=== PATIENT | female | born 1980 | race Caucasian/White ===

== ENCOUNTER 2018-09-22 21:29 | Inpatient (IN) | payer BC ==
--- OUTSIDE RECORDS SUMMARY | 2018-09-22 21:32 | XMS REPORT ---
:1980 [facility] Address [address] [place] [address] Care Team Providers Name Role Phone Unavailable Unavailable Unavailable Problems This patient has no known problems. Allergies, Adverse Reactions, Alerts This patient has no known allergies or adverse reactions. Medications This patient has no known medications. Results Test Description Test Time Test Comments Text Results Atomic Results Result Comments FL, UGI, AIR 2017-07-03 14:51:00 Reason for FINAL REPORT PATIENT ID: CONTRAST, WITHOUT Exam:->MORBID OBESITY, [id number] Upper GI KUB COMPLICATION GASTRIC dated 07/03/2017 History: BAND Morbid obesity, evaluate lap band Comparison: CT of the abdomen and pelvis dated 08/05/2016 Findings: Patient swallowed liquid barium under fluoroscopy. Total patient fluoro is 0.6 minutes. Total number of images is 16. There is a gastric lap band in place. The angle between the spine and the lap band is approximately 46 degrees. Contrast flowed smoothly from the distal esophagus, through the gastric lap band, into the stomach. The esophagus was normal in caliber, and motility. Previously seen hernia on CT scan of the abdomen and pelvis was not visualized on today's examination. No gastroesophageal reflux noted during the examination. Visualized mucosa of the stomach and duodenum was normal. There was prompt passage of contrast from stomach into the proximal small bowel. Impression: Gastric lap band in place with no evidence of obstruction. Signed: Leslie Saunders MDReport Verified Date/Time: 07/03/2017 14:51:01 Reading Location: [facility] Radiology Reading Room
--- OUTSIDE RECORDS SUMMARY | 2018-09-22 21:32 | XMS REPORT | Clinical Summary ---
:1980 Author Organization [facility] Address [address] [place] [address] Care Team Providers Name Role Phone Delmer Torres MD Primary Care Provider Allergies Active Allergy Reactions Severity Noted Date Comments Codeine 07/11/2013 Morphine 07/11/2013 Hydrocodone-Acetaminophen 07/11/2013 Medications Medication Sig Dispensed Refills Start Date End Date Status levothyroxine 2 05/10/2018 Active (SYNTHROID, LEVOTHROID) 50 MCG tablet MINIVELLE 0.1 mg/24 Place 1 patch 8 patch 11 05/17/2018 Active hr patch onto the skin 9 twice a week. PREMARIN 0.625 INSERT ONE GRAM 30 g 3 06/21/2018 Active mg/gram vaginal VAGINALLY TWICE cream WEEKLY FOR 30 DAYS estradiol (ESTRACE) Take 2 mg by 0 Discontinued 2 MG tablet mouth daily. 8 ergocalciferol Take 50,000 0 Discontinued (VITAMIN D2) 50,000 Units by mouth 8 unit capsule once a week. MINIVELLE 0.1 mg/24 APPLY ONE PATCH 0 04/18/2018 Discontinued hr patch TO SKIN TWICE A [address] 1 g 8 g 0 05/17/2018 Discontinued (PREMARIN) 0.625 vaginally twice 8 mg/gram vaginal a week for 30 cream days. Active Problems Not on file Encounters Date Type Specialty Care Team Description 06/18/2018 Refill Obstetrics and [facility] Gynecology 05/17/2018 Office Visit Obstetrics and Eddie [facility]cock Well woman exam with Gynecology MD routine gynecological exam (Primary Dx) after 09/21/2017 Family History Medical History Relation Name Comments Pancreatic cancer Cousin Paternal Atrial fibrillation Father Depression Father Heart disease Father Hypertension Father Liver disease Father Heart disease Maternal Grandfather Colon cancer Maternal Grandmother Heart disease Maternal Grandmother Liver cancer Maternal Grandmother Heart disease Mother Hypertension Mother Brain cancer Paternal Aunt Lung cancer Paternal Aunt Colon cancer Paternal Grandfather Heart disease Paternal Grandfather Heart disease Paternal Grandmother Stroke Paternal Grandmother Relation Name Status Comments Cousin Paternal Alive Father Maternal Grandfather Maternal Grandmother Mother Paternal Aunt Paternal Grandfather Paternal Grandmother Social History Tobacco Use Types Packs/Day Years Used Date Never Smoker Smokeless Tobacco: Never Used Alcohol Use Drinks/Week oz/Week Comments Yes 1 Glasses of wine 0.6 Sex Assigned at Date Recorded Not on file Job Start Date Occupation Industry Not on file Not on file Not on file Travel History Travel Start Travel End No recent travel history available. Last Filed Vital Signs Vital Sign Reading Time Taken Blood Pressure 124/80 05/17/2018 11:28 AM CDT Pulse - - Temperature - - Respiratory Rate - - Oxygen Saturation - - Inhaled Oxygen Concentration - - Weight 92.5 kg (204 lb) 05/17/2018 11:28 AM CDT Height 160 cm (5' 3") 05/17/2018 11:28 AM CDT Body Mass Index 36.14 05/17/2018 11:28 AM CDT Plan of Treatment Health Maintenance Due Date Last Done Comments INFLUENZA VACCINE 06/28/2018 Procedures Procedure Name Priority Date/Time Associated Diagnosis Comments PAP IG, RFX HPV AP Routine 05/17/2018 11:27 Well woman exam with Results for this ASCU AM CDT routine gynecological procedure are in exam the results section. after 09/21/2017 Results PAP IG, RFX HPV ASCU (05/17/2018 11:27 AM CDT) Clinical Information None given QUESTRGA LMP NONE GIVEN QUESTRGA Previous Pap NONE GIVEN QUESTRGA Previous Biopsy NONE GIVEN QUESTRGA Source: Vagina QUESTRGA Adequacy: QUESTRGA Comment: Satisfactory for evaluation. Endocervical/transformation zone component absent. Age and/or menstrual status not provided Interp/Result Comment: Negative for intraepithelial QUESTRGA lesion or malignancy. Infection: QUESTRGA Comment: Fungal organisms morphologically consistent with Priya spp. Comment: QUESTRGA Comment: This Pap test has been evaluated with computer assisted technology. [employer] CHARLIE Comment: JGM, CT(ASCP) CT screening location: [address], [place] [id number] Comment CHARLIE Comment: EXPLANATORY NOTE: The Pap is a screening test for cervical cancer. It is not a diagnostic test and is subject to false negative and false positive results. It is most reliable when a satisfactory sample, regularly obtained, is submitted with relevant clinical findings and history, and when the Pap result is evaluated along with historic and current clinical information. Specimen Vaginal Swab - Vaginal Resulting Agency Comment Performing Organization Information: Site ID: [id number] Name: [facility] Address: [address] [place] [id number] Director: Ayse Barber Performing Organization Address [facility]/State[facility] Phone Number [facility] [address] [place] [address] CHARLIE after 09/21/2017 Insurance Payer Benefit Plan / Subscriber ID Type Phone Address Group BLUE CROSS/BLUE BCBS ADV HMO xxxxxxxxxxxx [phone] [id number] [place] [address]
[2018-09-22] MEDS ORDERED: HYDROMORPHONE HCL 1 MG/ML INJ ONE (22:02)
[2018-09-22] MEDS ORDERED: ONDANSETRON 4 MG/2 ML VIAL ONE (22:02)
[2018-09-22 22:35] LABS: Absolute Lymphocytes (CBC) 2.7 K/uL (0.7-4.9); Absolute Monocytes 0.8 K/uL (0.1-1.3); Absolute Neutrophil 9.5 K/uL (1.8-8.0); Basophils % 0.6 % (0-1.3); Eosinophils % 1.6 % (0-4.4); Hematocrit 39.7 % (36.0-45.0); Lymphocytes % 20.1 % (15.3-44.8); MPV 6.6 fL (7.6-11.3); Monocytes % 5.9 % (3.3-12.3); RBC Red Blood Cell Count 4.58 M/uL (3.86-4.86)
--- NOTE | 2018-09-22 22:40 | ER ---
Nurse's Notes [facility] Name: Mamadou Weber Age: 38 yrs Sex: Female : 1980 Arrival Date: 09/22/2018 Time: 21:31 Bed 5 Private MD: Diagnosis: Bimalleolar fracture of lower leg-intractable pain Presentation: 09/22 21:32 Presenting complaint: EMS states: Patient reports she was at [employer] and lost her ea footing and fell into a ball pit, pt reports pain to right foot, EMS reports pedal pulses to affected area, deformity noted to right ankle. Transition of care: patient was not received from another setting of care. Onset of symptoms was September 22, 2018. Risk Assessment: Do you want to hurt yourself or someone else? Patient reports no desire to harm self or others. Initial Sepsis Screen: Does the patient meet any 2 criteria? No. Patient's initial sepsis screen is negative. Does the patient have a suspected source of infection? No. Patient's initial sepsis screen is negative. Care prior to arrival: None. 21:32 Method Of Arrival: EMS: [facility] ea 21:32 Acuity: RACHID 3 ea Triage Assessment: 21:32 General: Appears uncomfortable, Behavior is restless. Pain: Complains of pain in right ea ankle. Neuro: Level of Consciousness is awake, alert, obeys commands. Cardiovascular: Pulses are absent in right dorsalis pedis artery. Respiratory: Airway is patent Respiratory effort is even, unlabored, Respiratory pattern is regular, symmetrical. Musculoskeletal: Bony deformity noted of right ankle. Historical: - Allergies: 22:19 Codeine; ea - PSHx: 22:19 Cholecystectomy; ea - Immunization history:: Adult Immunizations up to date. - Social history:: Smoking status: Patient/guardian denies using tobacco. - Family history:: not pertinent. - Ebola Screening: : No symptoms or risks identified at this time. Screenin:32 Abuse screen: Denies threats or abuse. Nutritional screening: No deficits noted. ea Tuberculosis screening: No symptoms or risk factors identified. Fall Risk Assessment: 22:41 Reassessment: Patient and/or family updated on plan of care and expected duration. Pain ea level reassessed. Patient is alert, oriented x 3, equal unlabored respirations, skin warm/dry/pink. Pt complaining of pain, provider notified medication order obtained,medication administered. 23:39 Reassessment: Patient and/or family updated on plan of care and expected duration. Pain ea level reassessed. Patient is alert, oriented x 3, equal unlabored respirations, skin warm/dry/pink. awaiting for CT results. 09/23 00:21 Reassessment: Patient and/or family updated on plan of care and expected duration. Pain ea level reassessed. Patient is alert, oriented x 3, equal unlabored respirations, skin warm/dry/pink. 01:00 Reassessment: Patient and/or family updated on plan of care and expected duration. Pain ea level reassessed. Patient is alert, oriented x 3, equal unlabored respirations, skin warm/dry/pink. 02:15 Reassessment: Patient and/or family updated on plan of care and expected duration. Pain ea level reassessed. Patient is alert, oriented x 3, equal unlabored respirations, skin warm/dry/pink. 03:17 Reassessment: Patient and/or family updated on plan of care and expected duration. Pain ea level reassessed. Patient is alert, oriented x 3, equal unlabored respirations, skin warm/dry/pink. Transferred via stretcher to second floor [facility], accompanied by family. Tolerating well. Vital Signs: 09/22 21:32 BP 132 / 105; Pulse 99; Resp 20; Temp 98.7; Pulse Ox 100% ; Pain 10/10; ea 22:00 BP 128 / 90; Pulse 80; Resp 19; Pulse Ox 99% ; ea 23:50 BP 128 / 84; Pulse 77; Resp 18; Pulse Ox 100% ; ea 09/23 00:45 BP 119 / 81; Pulse 82; Resp 18; Pulse Ox 100% on R/A; Pain 8/10; ea 03:00 BP 135 / 70; Pulse 78; Resp 18; Temp 98; Pulse Ox 98% ; Pain 8/10; ea ED Course: 09/22 21:31 Patient arrived in ED. am2 21:34 Hiro Schmitz MD is Attending Physician. [facility] 21:35 Patient has correct armband on for positive identification. Bed in low position. Call ea light in reach. Side rails up X2. 21:35 Arm band placed on right wrist. Patient placed in an exam room, on a stretcher, on ea pulse oximetry. 22:13 Viola Tamez, ERIK is Primary Nurse. ea 22:16 Triage completed. ea 22:22 Ankle Right 3 View XRAY In Process Unspecified. EDMS 22:38 Tahir Saucedo MD is Referral Physician. susan 22:58 Orthoglass splint: stirrup splint applied on right leg. oe 23:34 Ankle Right Wo Con In Process Unspecified. EDMS 09/23 00:33 Tahir Saucedo MD is Hospitalizing Provider. susan 01:02 No provider procedures requiring assistance completed. Patient admitted, IV remains in ea place. Administered Medications: 09/22 22:14 Drug: Dilaudid 1 mg Route: IVP; Site: left antecubital; ea 22:50 Follow up: Response: Pain is decreased ea 22:14 Drug: Zofran 4 mg Route: IVP; Site: left antecubital; ea 22:45 Follow up: Response: No adverse reaction ea 23:04 Drug: fentaNYL Patch (50 mcg/hr) 1 patches Route: Transdermal; Site: affected area; ea 09/23 00:14 Drug: Dilaudid 1 mg Route: IVP; Site: left antecubital; ea 01:00 Follow up: Response: No adverse reaction; Pain is decreased ea 00:14 Drug: Zofran 4 mg Route: IVP; Site: left antecubital; ea 01:00 Follow up: Response: No adverse reaction ea 03:15 Drug: TORadol 30 mg Route: IVP; Site: left antecubital; ea 03:16 Follow up: Response: No adverse reaction; No adverse reaction,medication administered ea upon tranfer 03:16 Not Given (administered, documented in meditech): Dilaudid 1 mg IVP once ea Outcome: 09/22 22:39 Discharge ordered by . [facility] 09/23 00:35 Decision to Hospitalize by Provider. susan 01:03 Condition: stable ea 01:03 Instructed on the need for admit. 03:19 Admitted to Med/surg accompanied by tech, via stretcher, with chart, Report called to maco Carlton RN 03:20 Patient left the ED. ea Signatures: Dispatcher [employer] EDID Hiro Schmitz MD MD cha Espinosa, Orlando oe Moreno, Amanda am2 Tamez, Viola, RN RN ea
--- NOTE | 2018-09-22 22:40 | EDPHYS ---
Physician Documentation [facility] Name: Mamadou Weber Age: 38 yrs Sex: Female : 1980 Arrival Date: 09/22/2018 Time: 21:31 Bed 5 Private MD: ED Physician Hiro Schmitz HPI: 09/22 21:38 This 38 yrs old Female presents to ER via Unassigned with complaints of Leg susan Pain. 21:38 The patient presents with decreased range of motion, pain, swelling, tenderness. The susan complaints affect the right ankle and anterior aspect of right ankle. Context: The problem was sustained. Onset: The symptoms/episode began/occurred just prior to arrival. Modifying factors: The symptoms are alleviated by elevating leg, remaining still, the symptoms are aggravated by movement. Associated signs and symptoms: The patient has no apparent associated signs or symptoms. Treatment prior to arrival includes: elevation of the extremity, icing the affected extremity. Severity of symptoms: At their worst the symptoms were moderate, in the emergency department the symptoms are unchanged. Historical: - Allergies: 22:19 Codeine; ea - PSHx: 22:19 Cholecystectomy; ea - Immunization history:: Adult Immunizations up to date. - Social history:: Smoking status: Patient/guardian denies using tobacco. - Family history:: not pertinent. - Ebola Screening: : No symptoms or risks identified at this time. ROS: 21:38 Constitutional: Negative for fever, chills, and weight loss, Eyes: Negative for injury, susan pain, redness, and discharge, ENT: Negative for injury, pain, and discharge, Neck: Negative for injury, pain, and swelling, Cardiovascular: Negative for chest pain, palpitations, and edema, Respiratory: Negative for shortness of breath, cough, wheezing, and pleuritic chest pain, Abdomen/GI: Negative for abdominal pain, nausea, vomiting, diarrhea, and constipation, Back: Negative for injury and pain, : Negative for injury, bleeding, discharge, and swelling, Skin: Negative for injury, rash, and discoloration, Neuro: Negative for headache, weakness, numbness, tingling, and seizure, Psych: Negative for depression, anxiety, suicide ideation, homicidal ideation, and hallucinations, Allergy/Immunology: Negative for hives, rash, and allergies, Endocrine: Negative for neck swelling, polydipsia, polyuria, polyphagia, and marked weight changes, Hematologic/Lymphatic: Negative for swollen nodes, abnormal bleeding, and unusual bruising. 21:38 MS/extremity: Positive for decreased range of motion, pain, swelling, tenderness, of the right ankle and anterior aspect of right ankle. Exam: 21:38 Constitutional: This is a well developed, well nourished patient who is awake, alert, susan and in no acute distress. Head/Face: Normocephalic, atraumatic. Eyes: Pupils equal round and reactive to light, extra-ocular motions intact. Lids and lashes normal. Conjunctiva and sclera are non-icteric and not injected. Cornea within normal limits. Periorbital areas with no swelling, redness, or edema. ENT: Nares patent. No nasal discharge, no septal abnormalities noted. Tympanic membranes are normal and external auditory canals are clear. Oropharynx with no redness, swelling, or masses, exudates, or evidence of obstruction, uvula midline. Mucous membranes moist. Neck: Trachea midline, no thyromegaly or masses palpated, and no cervical lymphadenopathy. Supple, full range of motion without nuchal rigidity, or vertebral point tenderness. No Meningismus. Chest/axilla: Normal chest wall appearance and motion. Nontender with no deformity. No lesions are appreciated. Cardiovascular: Regular rate and rhythm with a normal S1 and S2. No gallops, murmurs, or rubs. Normal PMI, no JVD. No pulse deficits. Respiratory: Lungs have equal breath sounds bilaterally, clear to auscultation and percussion. No rales, rhonchi or wheezes noted. No increased work of breathing, no retractions or nasal flaring. Abdomen/GI: Soft, non-tender, with normal bowel sounds. No distension or tympany. No guarding or rebound. No evidence of tenderness throughout. Back: No spinal tenderness. No costovertebral tenderness. Full range of motion. Skin: Warm, dry with normal turgor. Normal color with no rashes, no lesions, and no evidence of cellulitis. Neuro: Awake and alert, GCS 15, oriented to person, place, time, and situation. Cranial nerves II-XII grossly intact. Motor strength 5/5 in all extremities. Sensory grossly intact. Cerebellar exam normal. Normal gait. Psych: Awake, alert, with orientation to person, place and time. Behavior, mood, and affect are within normal limits. 21:38 Musculoskeletal/extremity: Extremities: decreased ROM, pain, ROM: limited active range of motion due to pain, limited passive range of motion due to pain, Circulation is intact in all extremities. Sensation intact. Compartment Syndrome exam of affected extremity: is normal. DVT Exam: negative Homans' sign noted on exam, no appreciated bluish discoloration, no erythema, no increased warmth, pain, swelling, tenderness. Vital Signs: 21:32 BP 132 / 105; Pulse 99; Resp 20; Temp 98.7; Pulse Ox 100% ; Pain 10/10; ea 22:00 BP 128 / 90; Pulse 80; Resp 19; Pulse Ox 99% ; ea 23:50 BP 128 / 84; Pulse 77; Resp 18; Pulse Ox 100% ; ea 09/23 00:45 BP 119 / 81; Pulse 82; Resp 18; Pulse Ox 100% on R/A; Pain 8/10; ea 03:00 BP 135 / 70; Pulse 78; Resp 18; Temp 98; Pulse Ox 98% ; Pain 8/10; ea MDM: 09/22 21:34 [facility] 21:42 Data reviewed: vital signs, nurses notes, lab test result(s), radiologic studies, plain susan films. 09/22 21:38 Order name: CBC with Diff; Complete Time: 23:00 [facility] 09/22 21:38 Order name: Comprehensive Metabolic Panel; Complete Time: 23:00 [facility] 09/22 21:38 Order name: Ankle Right 3 View XRAY [facility] 09/22 22:47 Order name: Ankle Right Wo Con EDMS 09/22 21:38 Order name: Ice pack; Complete Time: 22:14 [facility] Administered Medications: 22:14 Drug: Dilaudid 1 mg Route: IVP; Site: left antecubital; ea 22:50 Follow up: Response: Pain is decreased ea 22:14 Drug: Zofran 4 mg Route: IVP; Site: left antecubital; ea 22:45 Follow up: Response: No adverse reaction ea 23:04 Drug: fentaNYL Patch (50 mcg/hr) 1 patches Route: Transdermal; Site: affected area; ea 09/23 00:14 Drug: Dilaudid 1 mg Route: IVP; Site: left antecubital; ea 01:00 Follow up: Response: No adverse reaction; Pain is decreased ea 00:14 Drug: Zofran 4 mg Route: IVP; Site: left antecubital; ea 01:00 Follow up: Response: No adverse reaction ea 03:15 Drug: TORadol 30 mg Route: IVP; Site: left antecubital; ea 03:16 Follow up: Response: No adverse reaction; No adverse reaction,medication administered ea upon tranfer 03:16 Not Given (administered, documented in meditech): Dilaudid 1 mg IVP once ea Disposition: 09/23/18 00:35 Hospitalization ordered by Tahir Saucedo for Observation. Preliminary diagnosis is Bimalleolar fracture of lower leg - intractable pain. - Bed requested for Telemetry/MedSurg (observation). - Status is Observation. ea - Condition is Stable. - Problem is new. - Symptoms have improved. UTI on Admission? No Signatures: Dispatcher [employer] EDHiro Van MD MD cha Garcia, Cindy, RN RN cg Antunez, Elena, RN RN ea Corrections: (The following items were deleted from the chart) 00:33 09/22 22:39 09/22/2018 22:39 Discharged to Home. Impression: Bimalleolar fracture of susan lower leg. Condition is Stable. Forms are Medication Reconciliation Form, Thank You Letter, Antibiotic Education, Prescription Opioid Use. Follow up: Tahir Saucedo; When: 1 - 2 days; Reason: Recheck today's complaints, Re-evaluation by your physician. Problem is new. Symptoms have improved. [facility] 09/23 00:56 00:35 Hospitalization Ordered by Tahir Saucedo MD for Observation. Preliminary cg diagnosis is Bimalleolar fracture of lower leg - intractable pain. Bed requested for Telemetry/MedSurg (observation). Status is Observation. Condition is Stable. Problem is new. Symptoms have improved. UTI on Admission? No. susan 00:59 09/22 22:38 Crutches ordered. [facility] maco 09/23 03:20 00:56 09/23/2018 00:35 Hospitalization Ordered by Tahir Saucedo MD for Observation. ea Preliminary diagnosis is Bimalleolar fracture of lower leg - intractable pain. Bed requested for Telemetry/MedSurg (observation). Status is Observation. Condition is Stable. Problem is new. Symptoms have improved. UTI on Admission? No. cg
[2018-09-22 22:54] LABS: Albumin 3.5 g/dL (3.4-5.0); Bilirubin Total 0.2 mg/dL (0.2-1.0); Potassium 3.6 mmol/L (3.5-5.1); Protein, Total 7.1 g/dL (6.4-8.2)
[2018-09-22] MEDS ORDERED: FENTANYL 50 MCG/PATCH TD ONE (23:04)
[2018-09-23] MEDS ORDERED: ONDANSETRON 4 MG/2 ML VIAL ONE ×2 (00:16→18:56)
[2018-09-23] MEDS ORDERED: HYDROMORPHONE HCL 1 MG/ML INJ ONE (00:16)
[2018-09-23] MEDS ORDERED: ACETAMINOPHEN 500 MG TAB PO PRN (02:53)
[2018-09-23] MEDS ORDERED: HYDROMORPHONE HCL 1 MG/ML INJ IV PRN (02:53)
[2018-09-23] MEDS: ONDANSETRON 4 MG/2 ML VIAL IV PRN ×2 (03:06→12:56)
[2018-09-23] MEDS ORDERED: KETOROLAC 30 MG/ML INJ ONE ×2 (03:18→19:34)
[2018-09-23 03:46] VITALS: BMI 31.8
[2018-09-23] MEDS: NA CHLORIDE 0.9% 1,000 ML IV SCH ×3 (04:25→21:08)
--- NOTE | 2018-09-23 08:31 | RAD REPORT ---
EXAM DESCRIPTION: CT - Ankle Right Wo Con - 09/23/2018 7:07 am CLINICAL HISTORY: Fibular and tibial fracture status post fall COMPARISON: X-ray September 22 2018 TECHNIQUE: Computed axial tomography right ankle with coronal sagittal reconstruction. Preliminary report generated by virtual radiologic and reviewed prior to dictation All CT scans are performed using dose optimization technique as appropriate and may include automated exposure control or mA/KV adjustment according to patient size. FINDINGS: Oblique fracture involves the distal fibula with separation of fracture fragments 3 millim eters. Avulsion fracture of the medial malleolus. Nondisplaced posterior malleolar fracture. Mild widening m edial clear space IMPRESSION: Trimalleolar fracture Mild widening medial clear space may indicate an injury to deltoid ligament
[2018-09-23] MEDS: HYDROMORPHONE HCL 0.5 MG/0.5 ML INJ IV PRN ×3 (08:35→21:52)
--- NOTE | 2018-09-23 08:37 | RAD REPORT ---
EXAM DESCRIPTION: RAD - Ankle Right 3 View - 09/22/2018 10:22 pm CLINICAL HISTORY: Right ankle pain status post fall FINDINGS: Avulsion fracture medial malleolus. Mildly displaced oblique fracture distal fibula. Nondisplaced fracture posterior malleolus better seen on the CT scan on the same date. No dislocation seen
[2018-09-23] MEDS ORDERED: CEFAZOLIN 1GM (PREMIX IV) 1 GM/50 ML BAG IVPB SCH (12:15)
[2018-09-23] MEDS ORDERED: CEFAZOLIN 1GM (PREMIX IV) 0 GM/0 ML BAG ONE (14:57)
[2018-09-23] MEDS ORDERED: Ringers Lactate 1,000 ML IV ONE ×3 (15:36→19:28)
[2018-09-23] MEDS ORDERED: SUCCINYLCHOLINE 20 MG/ML (10 ML) IV ONE (15:45)
[2018-09-23] MEDS ORDERED: FENTANYL CITR 250 MCG/5 ML ONE (15:48)
[2018-09-23] MEDS ORDERED: PROPOFOL 200 MG/20 ML VIAL IV ONE (15:48)
[2018-09-23] MEDS ORDERED: ROCURONIUM 50 MG/5 ML VIAL IV ONE (15:48)
[2018-09-23] MEDS ORDERED: MIDAZOLAM HCL 2 MG/2 ML INJ ONE (15:49)
[2018-09-23] MEDS: BUPIVACAINE 0.25% PF 10 ML VIAL ONE ×2 (16:57→19:05)
[2018-09-23] MEDS ORDERED: BUPIVACAINE 0.25% PF 10 ML VIAL ONE (17:04)
[2018-09-23] MEDS ORDERED: DEXAMETHASONE 10 MG/ML VIAL ONE (18:57)
[2018-09-23] MEDS: MEPERIDINE HCL 50 MG/ML AMP ONE ×3 (19:29→19:47)
[2018-09-23] MEDS ORDERED: DOCUSATE NA 100 MG CAP PO PRN (19:36)
--- NOTE | 2018-09-23 19:41 | P.BOP ---
Preoperative diagnosis: TRIMALLEOLAR FRACTURE RIGHT ANKLE Postoperative diagnosis: SAME Primary procedure: ORIF RIGHT ANKLE TRIMALLEOLAR FRACTURE Underwater Welder: Tahir Saucedo Estimated blood loss: 50 mL Specimen: NONE Findings: DISPLACED MED.MALL. AND LAT. MALL., NONDISPL.POST. MALL. Anesthesia: General Complications: None Implants: TWO 50mm 4.0mmCANN SCREWS MED. MALL.;5HOLE1/3TUBULAR PLATE&5SCREWS LAT.MALL Fluids & blood products: INJ 20 mL 0.25%[place] IN INCISIONS Transferred to: Recovery Room Condition: Good
[2018-09-23] MEDS ORDERED: PROMETHAZINE 25 MG/ML VIAL ONE (19:44)
--- NOTE | 2018-09-23 20:40 | HP ---
Date of Admission: 09/23/2018 History Of Present Illness: Mamadou Weber is a 38-year-old female who presented to the [facility] ED with injury to her right ankle that she incurred while jumping on a trampoline at a mall facility. The patient complained of pain, swelling, and limited range of motion, and x-ra y revealed a trimalleolar fracture of the right ankle. The patient was placed in a posterior splint and admitted to Observation for possible ORIF, right ankle. Allergies: THERE IS AN ALLERGY TO CODEINE. Past Medical History: The patient has a history of cholecystectomy. The patient takes as the only h ome medication Synthroid 125 mcg tablet p.o. daily. She is treated for hypothyroidism. Review of Systems: Show a 10-point review negative with only musculoskeletal and extremity symptoms positive for decreas ed range of motion, pain, swelling, and tenderness of the right ankle and anterior aspect of the righ t ankle. Physical Examination: General: This is a well-nourished 38-year-old female who is alert, oriented, and in no acute distres s this morning, having been awakened from sleep. HEENT: Within normal limits. Neck: Supple. Chest: Clear to auscultation. Heart: Has a regular rate and rhythm. Abdomen: Soft and nontender. Active bowel sounds are present. Genital and Rectal: Deferred. Extremities: The patient is in a posterior plus sugar-tong splint for the right lower leg. Capillar y filling is brisk and neurovascular exam is intact in the first web space. The patient demonstrates active range of motion of toes. Imaging: Review of x-rays show a bimalleolar fracture with displacement of the medial malleolus and mild displacement and comminution of the lateral malleolus. The CT scan done after splinting to help visualize the posterior horn and medial malleolus fragments better showed a nondisplaced posterior m alleolar fracture to make this a trimalleolar fracture. Laboratory Data: Revealed white blood cell count mildly elevated at 13.2 with normal differential. Hemoglobin is 13.1. Blood chemistries show estimated GFR at 78, low; calcium is 8.4, low; globulin i s 3.6, high. Assessment: This is a 38-year-old female who has suffered a traumatic injury to her right ankle with trimalleolar fracture. After discussion of risks and benefits with all questions answered, she has elected to proceed with open reduction/internal fixation for the right ankle trimalleolar fracture. Plan: This patient will be taken for ORIF of the right ankle trimalleolar fracture at approximately 2 p.m. today. She is made n.p.o. after 8 o'clock this morning. She had had only a few sips of water prior to that and was still asleep at 8 p.m., awakened for discussion of risks and benefits. XIOMARA/JAMES Voice ID: [id number]
[2018-09-23] MEDS ORDERED: HYDROCODONE/APAP 7.5/325 MG TAB PO PRN (22:40)
[2018-09-23] MEDS ORDERED: HYDROMORPHONE HCL 0.5 MG/0.5 ML INJ IV PRN (22:40)
[2018-09-23] MEDS ORDERED: HYDROMORPHONE HCL 0.5 MG/0.5 ML INJ IV ONE (22:40)
[2018-09-23] MEDS ORDERED: CEFAZOLIN 1GM (PREMIX IV) 2 GM/100 ML BAG ONE (23:56)
[2018-09-24] MEDS: HYDROCODONE/APAP 7.5/325 MG TAB PO PRN ×4 (00:23→17:08)
[2018-09-24] MEDS: ONDANSETRON 4 MG/2 ML VIAL IV PRN ×3 (02:57→22:02)
[2018-09-24] MEDS: CEFAZOLIN/NS 1gm 1 GM/50 ML BAG IVPB SCH ×2 (05:14)
[2018-09-24] MEDS: NA CHLORIDE 0.9% 1,000 ML IV SCH (08:53)
[2018-09-24] MEDS: HYDROMORPHONE HCL 1 MG/ML INJ IV PRN ×4 (09:05→22:02)
[2018-09-24] MEDS: ASPIRIN 325 MG TAB PO SCH (09:05)
--- NOTE | 2018-09-24 11:31 | RAD REPORT ---
EXAM DESCRIPTION: RAD - Ankle Right 2 View - 09/23/2018 7:13 pm CLINICAL HISTORY: RT ANKLE Fracture COMPARISON: Ankle Right 3 View dated 09/22/2018; Ankle Right Wo Con dated 09/22/2018 FINDINGS: Fluoroscopic imaging of the right ankle is submitted from ORIF procedure. Details of the p rocedure not available. Total fluoro time 0.5 minutes.
--- NOTE | 2018-09-24 16:38 | P.PN ---
Date of Service: 09/24/18 (POD#1) S: THIS PATIENT HAS HAD DIFFICULTY IN MOBILIZATION BECAUSE OF PAIN SYMPTOMS REQUIRING BUMP UP OF DILAUDID IV TO GAIN CONTROL. SHE IS FEELING BETTER THIS AFTERNOON, MAKING SOME PROGRESS WITH MOBILIZATION. O: VSS, AFEBRILE, HGB 12.7 POST OP. SPLINT AND BANDAGE DRY AND INTACT. MADE 7 ' WITH FWW THIS AM AND 60' THIS AFTERNOON WITH RW IN TWO SEGMENTS. PATINET ABLE TO LIFT RLE 1" OFF PILLOW SUPPORT. NV EXAM INTACT TO LIGHT TOUCH 1ST WEB SPACE AND DORSIFLEXION OF TOES VIGOROUS. CAPILLARY RETURN BRISK < 3SEC. A: PATIENT NEEDS TONIGHT AND MOBILIZATION EFFORT TOMORROW PRIOR TO PLANNED DISCHARGE. F/U TO BE MY OFFICE IN ~7 TO 10 D.
[2018-09-25] MEDS: HYDROCODONE/APAP 7.5/325 MG TAB PO PRN ×3 (00:14→15:02)
[2018-09-25] MEDS: HYDROMORPHONE HCL 1 MG/ML INJ IV PRN ×3 (03:21→13:01)
[2018-09-25] MEDS: ONDANSETRON 4 MG/2 ML VIAL IV PRN (03:21)
[2018-09-25 07:54] VITALS: O2SAT 95
[2018-09-25] MEDS: ASPIRIN 325 MG TAB PO SCH (09:18)
[2018-09-25 11:04] VITALS: BP 107/52; TEMP 97.1
--- NOTE | 2018-10-06 04:32 | OP ---
Date of Procedure: 09/23/2018 Surgeon: Tahir Saucedo MD Material Analyst: Tahir Saucedo M.D. Preoperative Diagnosis: Trimalleolar fracture, right ankle. Postoperative Diagnosis: Trimalleolar fracture, right ankle. Primary Procedure: Open reduction and internal fixation right ankle trimalleolar fracture. Indications: This 38-year-old female was at an entertainment venue with trampolines and ball pits an d she stepped into a ball pit with impact on her right ankle and suffered a trimalleolar fracture. P ain control was poor and she was admitted, and will be taken to surgery the following day with planne d open reduction and internal fixation of medial and lateral malleolar displaced fractures, and close d management of small fragments of posterior malleolar fracture. The patient is aware of risks and b enefits and has elected to proceed. Technique: The patient was taken to the operating room and given a general anesthetic. She was plac ed on the surgery table with a bolster under her right hip to allow access to the lateral malleolus. The right lower extremity was prepped and draped after a time-out in which all pertinent facts were discussed and agreed upon before deciding to proceed with this operation. A tourniquet was applied a t the proximal thigh. Prepping and draping was carried out from above the knee through the foot. Th e incision was made in a curved fashion over the medial malleolus to expose the medial malleolar frac ture. Reduction was accomplished with 2 smooth Steinmann pins to be used for insertion of cannulated screws. The 2 pins were left maintaining the medial malleolar reduction. The incision was covered with moist gauze sponges. Attention was turned to the lateral malleolar fracture. A longitudinal in cision was made to expose the lateral malleolus. The reduction was accomplished with claw clamps dede ligning fragments and then a 5-hole 1/3rd tubular plate was used to provide fixation with 4 cortical and 1 cancellous screw. The cancellous screw was used in the second from most distal screw hole angus use of the cancellous bone in the bulbous end of the lateral malleolus. Irrigation was used prior to closure, closing the periosteum and fascial layers with 2-0 Vicryl as well as subcutaneous closure w ith 2-0 Vicryl. Then víctor were applied along the lateral skin incision for closure. The medial m alleolar fragments were still maintained in reduction by the smooth wire pins and the cannulated dril l was used prior to insertion of two 50 mm, 4.0 mm cannulated screws. This secured and compressed th e fixation for the medial malleolus. C-arm views showed adequate reduction for medial, lateral and p osterior malleolar fractures. The patient was treated with application of Xeroform gauze bandage fol lowed by 4x4s and Sof-Rol then a posterior splint and Jericho wrap, was additionally secured with a coapt ation splint and Jericho wraps to immobilize the right lower extremity in some semblance of neutral posit ion. Estimated blood loss was 50 mL. A 20 mL of 0.25% Marcaine plain was injected into the incision s prior to application of the splint and bandage. The patient was taken to the recovery room having tolerated the procedure well. XIOMARA/JAMES Voice ID: [id number] Report ID: [id number]
== END 2018-09-25 15:28 | disposition home or self-care (01) | DRG 494 ==
LOC: ER 21:29 → ERHOLD 09-23 00:40 → 2ND 09-23 03:02 → OBSVTOIN 09-24 17:54
PROVIDERS: ADMIT Orthopaedic Surgery; ATTEND Orthopaedic Surgery
PROC: 2W3QX1Z Immobilization of Right Lower Leg using Splint (ICD-10-PCS; 2018-09-22)
PROC: 0QSG04Z Reposition Right Tibia with Internal Fixation Device, Open Approach (ICD-10-PCS; 2018-09-23)
PROC: 0QSG04Z Reposition Right Tibia with Internal Fixation Device, Open Approach (ICD-10-PCS; 2018-09-23)
PROC: 0QSJ04Z Reposition Right Fibula with Internal Fixation Device, Open Approach (ICD-10-PCS; principal; 2018-09-23 14:00)
DX: S82.851A Displaced trimalleolar fracture of right lower leg, initial encounter for closed fracture (principal); W17.2XXA Fall into hole, initial encounter; Y93.89 Activity, other specified; Y92.838 Other recreation area as the place of occurrence of the external cause; Z88.5 Allergy status to narcotic agent; E03.9 Hypothyroidism, unspecified
CPT/HCPCS: 36415; 73700; 80053; 85018; 85025; 96374; 96375; 97110; 97112; 97116; 97163; 97530; 99285; G0378; J0330; J0690; J1100; J1170; J2175; J2250; J2405; J2550; J2704; J3010; J7030